=== PATIENT | male | born 1955 | race Caucasian/White ===

== ENCOUNTER 2021-02-14 16:33 | Emergency (ER) | payer OTHER ==
[~2021-02-14] VITALS: Ht 177.8 cm; Wt 78.2 kg
[2021-02-14 17:07] VITALS: BP 100/57
== END 2021-02-14 18:33 | disposition home or self-care (01) ==
LOC: EMS 16:42
DX: U07.1 COVID-19 (principal)
CPT/HCPCS: 99283; U0003

== ENCOUNTER 2021-02-22 16:26 | Emergency (ER) | payer OTHER ==
[~2021-02-22] VITALS: Ht 172.7 cm; Wt 85.0 kg
[2021-02-22 17:00] VITALS: BP 109/69
[2021-02-22] MEDS ORDERED: GuaiFENesin/D-METHORPHAN [SUGAR-FREE] 200-20MG/10 ML SYRUP UDCUP PO ONE (17:30)
[2021-02-22] MEDS ORDERED: HYDROCODONE/ACETAMINOPHEN 5-325 MG TABLET PO ONE (17:30)
== END 2021-02-22 18:51 | disposition home or self-care (01) ==
LOC: EMS 16:26
DX: J02.9 Acute pharyngitis, unspecified (principal)
CPT/HCPCS: 71045; 99283